=== PATIENT | male | born 1985 | race Caucasian/White ===

== ENCOUNTER 2018-10-15 18:45 | Emergency (ER) | payer MEDICAID ==
[~2018-10-15] VITALS: Ht 165.1 cm; Wt 83.4 kg
[2018-10-15 19:22] LABS: ALANINE AMINOTRANSFERASE 223 U/L (12-78); ALBUMIN 3.2 g/dL (3.4-5.0); ANION GAP 5 mmol/L (5-15); CALCIUM 8.4 mg/dL (8.5-10.1); CHLORIDE 103 mmol/L (98-107); CREATININE 0.84 mg/dL (0.7-1.3)
[2018-10-15 19:23] LABS: MEAN CORPUSCULAR HEMOGLOBIN 22.9 pg (27.5-34.5); MEAN CORPUSCULAR HGB CONC 31.8 g/dL (33.2-36.2); MEAN CORPUSCULAR VOLUME 72.1 fL (81-97); MEAN PLATELET VOLUME 9.1 fL (7.4-10.4); PLATELET COUNT 165 x10^3/uL (130-400); RED BLOOD COUNT 5.74 x10^6/uL (4.38-5.82); RED CELL DISTRIBUTION WIDTH 28.8 % (9.4-14.8)
[2018-10-15 19:25] LABS: ALKALINE PHOSPHATASE 177 U/L (45-117); BILIRUBIN,TOTAL 0.6 mg/dL (0.2-1.0); TOTAL PROTEIN 9.5 g/dL (6.4-8.2)
--- NOTE | 2018-10-15 19:35 | NUR ---
PT PRESENTS TO ED WITH SHARP LOWER LEFT ABD PAIN RADIATING TO BACK X1 DAY. NO ALLEVIATING OR RELEIVEING FACTORS. FRIEND AT BEDSIDE. UC COLLECTED. AWAITING RESULTS. CONNECTED TO BP CUFF AND PULSOE OX. VSS.
[2018-10-15 19:41] LABS: BASOPHILS # (AUTO) 0.04 x10^3/uL (0-0.1); BASOPHILS % (AUTO) 1 % (0-1); EOSINOPHILS # (AUTO) 0.22 x10^3/uL (0-0.4); EOSINOPHILS % (AUTO) 3 % (1-7); LYMPHOCYTES # (AUTO) 2.18 x10^3/uL (1-3.4); LYMPHOCYTES % (AUTO) 24 % (22-44); MD MORPH REVIEW ONLY; MONOCYTES # (AUTO) 1.49 x10^3/uL (0.2-0.8); MONOCYTES % (AUTO) 17 % (2-9); NEUTROPHILS # (AUTO) 5.03 x10^3/uL (1.8-6.8); NEUTROPHILS % (AUTO) 56 % (42-75)
[2018-10-15 19:42] LABS: ANISOCYTOSIS 2+; HYPOCHROMIA 1+; MICROCYTOSIS 2+; OVALOCYTES 1+
[2018-10-15 19:43] LABS: <PLATELET ESTIMATE> ADEQUATE; <PLT MORPHOLOGY> NORMAL PLT MORPH
[2018-10-15 19:50] LABS: CULTURE INDICATED? NO; MICROSCOPIC NOT IND
--- NOTE | 2018-10-15 20:27 | NUR ---
PT RESTING WITH FRIEND AT BEDSIDE. VSS, TACHY 100S. PT STATES PAIN IS DECREASING. AWAITING CTA. CALL LIGHT WITHIN REACH.
[2018-10-15] MEDS ORDERED: OMNIPAQUE 350 MG/ML, 100ML BOTTLE ONE (20:48)
--- NOTE | 2018-10-15 21:00 | NUR ---
PT BACK FROM CTA. RESTING IN ROOM WITH FRIEND AT BEDSIDE WATCHING TV. VSS, TACHY 110S. NO DISTRESS NOTED. CALL LIGHT WITHIN REACH. WILL CONTINUE TO MONITOR.
[2018-10-15] MEDS ORDERED: ONDANSETRON 2MG/ML, 2ML ONE (21:06)
[2018-10-15] MEDS ORDERED: CEFTRIAXONE PMX 1GM/50ML 50 ML ONE (21:06)
[2018-10-15] MEDS ORDERED: HYDROmorphone 2 MG/ML, 1ML ONE (21:07)
[2018-10-15 21:29] VITALS: BP 133/87
[2018-10-15] MEDS ORDERED: CEFTRIAXONE PMX 1GM/50ML 50 ML IV SCH (21:30)
[2018-10-15] MEDS ORDERED: HYDROmorphone 1 MG/ML, 1ML IVPush PRN (21:30)
[2018-10-15] MEDS ORDERED: ONDANSETRON 2MG/ML, 2ML IVPush ONE (21:30)
== END 2018-10-15 21:40 | disposition home or self-care (01) ==
LOC: ED 21:34
DX: J15.9 Unspecified bacterial pneumonia (principal); F17.200 Nicotine dependence, unspecified, uncomplicated
CPT/HCPCS: 36415; 71046; 71275; 80053; 81003; 83690; 85025; 85379; 93005; 96365; 96375; 99284; J0696; J1170; J2405; Q9967; 96374

== ENCOUNTER 2019-01-23 17:24 | Emergency (ER) | payer MEDICAID ==
[~2019-01-23] VITALS: Ht 165.1 cm; Wt 86.0 kg
--- NOTE | 2019-01-23 17:57 | NUR ---
Amanda SHAY at bedside to evaluate pt. Pt c/o R flank pain x2 days, denies N/V. Pt states he had a pain that was similar to that in the past and it was diagnosed as PNA. Pt denies cough or any dyspnea. Pt placed in gown, positioned for comfort in bed.
--- NOTE | 2019-01-23 18:07 | NUR ---
Pt in [place] at this time.
[2019-01-23 18:16] LABS: BASOPHILS # (AUTO) 0.03 x10^3/uL (0-0.1); BASOPHILS % (AUTO) 0 % (0-1); EOSINOPHILS % (AUTO) 1 % (1-7); LYMPHOCYTES # (AUTO) 1.31 x10^3/uL (1-3.4); LYMPHOCYTES % (AUTO) 18 % (22-44); MD NO; MEAN CORPUSCULAR HGB CONC 33.2 g/dL (33.2-36.2); MEAN CORPUSCULAR VOLUME 78.4 fL (81-97); MEAN PLATELET VOLUME 9.4 fL (7.4-10.4); MONOCYTES # (AUTO) 1.31 x10^3/uL (0.2-0.8); MONOCYTES % (AUTO) 18 % (2-9); NEUTROPHILS # (AUTO) 4.46 x10^3/uL (1.8-6.8); NEUTROPHILS % (AUTO) 62 % (42-75); PLATELET COUNT 125 x10^3/uL (130-400); RED BLOOD COUNT 5.54 x10^6/uL (4.38-5.82)
[2019-01-23 18:24] LABS: ALANINE AMINOTRANSFERASE 131 U/L (12-78); ALBUMIN 3.2 g/dL (3.4-5.0); ANION GAP 7 mmol/L (5-15); CALCIUM 8.4 mg/dL (8.5-10.1); CHLORIDE 105 mmol/L (98-107); CREATININE 0.87 mg/dL (0.7-1.3)
[2019-01-23 18:27] LABS: ALKALINE PHOSPHATASE 143 U/L (45-117); BILIRUBIN,TOTAL 0.7 mg/dL (0.2-1.0); TOTAL PROTEIN 9.4 g/dL (6.4-8.2)
[2019-01-23] MEDS ORDERED: OMNIPAQUE 350 MG/ML, 100ML BOTTLE ONE (19:00)
[2019-01-23] MEDS ORDERED: ACETAMINOPHEN 650 MG/20.3 ML UDC ONE (19:11)
[2019-01-23 20:37] VITALS: BP 137/65
== END 2019-01-23 20:39 | disposition home or self-care (01) ==
LOC: ED 18:20
DX: R07.89 Other chest pain (principal); R09.1 Pleurisy; R94.5 Abnormal results of liver function studies
CPT/HCPCS: 36415; 71046; 71275; 76700; 80053; 83690; 85025; 85379; 93005; 99284; Q9967